=== PATIENT | female | born 2000 | race Hispanic/Latino ===

== ENCOUNTER 2021-12-07 00:12 | Emergency (ER) | payer BC ==
[2021-12-07] MEDS ORDERED: Lorazepam 2 MG/ML VIAL ONE (00:39)
[2021-12-07] MEDS ORDERED: Ibuprofen 200 MG TAB ONE (00:40)
== END 2021-12-07 01:08 | disposition home or self-care (01) ==
LOC: CSHERS 00:12
DX: F43.0 Acute stress reaction (principal); J45.909 Unspecified asthma, uncomplicated
CPT/HCPCS: 71045; 93005; 96372; J2060